=== PATIENT | male | born 1965 | race Caucasian/White ===

== ENCOUNTER 2020-04-14 12:00 | Day surgery (SDC) | payer OTHER ==
[2020-04-14] VITALS (11 sets, daily range): BP systolic 110–148; BP diastolic 65–84; PULSE 55–79; TEMP 97.4–98.6
[~2020-04-14] VITALS: Ht 177.8 cm; Wt 96.6 kg
--- NOTE | 2020-04-14 11:50 | NUR ---
Patient escorted to the restroom, he voids, and returns to room.
[~2020-04-14 12:00] MED LIST: HCTZ 25MG TAB25 MG PO; LOPRESSOR100 MG PO; NORVASC 10MG10 MG PO; VASOTEC20 MG PO
--- NOTE | 2020-04-14 14:15 | NUR ---
Patient to room 349 from PACU. Alert and oriented, answers questions appropriately. Carrizales catheter in place, CBI infusing. Patient c/o pain/pressure to penis/bladder. States "I feel like I need to pee, my bladder is full". Patient requests to stand at side of bed because pain is more tolerable standing. Abdomen soft, non tender, non distended.
--- NOTE | 2020-04-14 14:45 | NUR ---
Patient continues to stand at side of bed, yelling out/cursing because pain is untolerable. Patient beltran bag with 500ml clear ortiz urine, 400ml present on admission to unit. Patient requests beltran be discontinued. Beltran catheter irrigated, no urine return noted.
--- NOTE | 2020-04-14 15:00 | NUR ---
Dr Singh notified of beltran catheter/pain and no additional urine output. Orders received.
--- NOTE | 2020-04-14 15:35 | NUR ---
Dr Singh notified of continued pain with beltran catheter removal/reinsertion. See orders.
--- NOTE | 2020-04-14 15:57 | NUR ---
Patient remains standing at bedside with 10/10 pain. 100ml clear ortiz urine noted in beltran bag. Patient continues to yell/curse from pain.
--- NOTE | 2020-04-14 16:35 | NUR ---
Dr Singh here to see patient. Carrizales catheter discontinued at this time.
[2020-04-15 04:09] VITALS: BP 147/87; PULSE 79; TEMP 98.1
--- NOTE | 2020-04-15 04:47 | NUR ---
Patient very restless this shift. Patient ambulated the halls frequently and appears to be awake when staff enter the room. Unsure that patient has slept at all, although he states he has been "napping". Patient is voiding well throughout the night. Continues to be light red/pink. Patient and had multiple questions at the beginning of the shift. This nurse answered them to the best of my ability. Patient has steady gait. Ambulates independently. Dr. Singh called about 2100 to check in on patient. New orders received to assist patient with pain relief, including Percocet 5-325mg q4hr PRN, Toradol 15mg q6 IV PRN, and Pyridium 100mg PO TID. Patient stated he felt better after these were administered. Patient denies any further needs. Will continue to monitor.
[2020-04-15 07:32] VITALS: BP 155/88; PULSE 89; TEMP 98.4
--- NOTE | 2020-04-15 07:35 | NUR ---
Up in room independently. Urinating red tinged urine without difficulty. Having gas pains in stomach. Denies additional needs or concerns at this time.
--- NOTE | 2020-04-15 10:30 | NUR ---
Patient up independently in room. Denies pain. Urinating without difficulty. Urine dark orange in color. Provided ice water to patient. Patient in room at this time. Denies any additional needs.
[2020-04-15 12:00] VITALS: BP 122/67; PULSE 62; TEMP 99.1
--- NOTE | 2020-04-15 12:48 | NUR ---
Reviewed discharge instructions with the patient and his . Deny questions and sign all discharge documents. Provided patient with the discharge packet. Patient and will gather all belongings at this time and will push call light when ready for discharge.
--- NOTE | 2020-04-15 13:15 | NUR ---
Patient uses call light as he is ready to leave. Patient ambulates to POV with all belongings with and TITA Smith.
== END 2020-04-15 13:15 | disposition home or self-care (01) ==
LOC: SURG 12:00 → SDCO 12:00
DX: C67.9 Malignant neoplasm of bladder, unspecified (principal); R31.9 Hematuria, unspecified; F41.9 Anxiety disorder, unspecified; I10 Essential (primary) hypertension; E78.00 Pure hypercholesterolemia, unspecified; Z88.8 Allergy status to other drugs, medicaments and biological substances; Z80.1 Family history of malignant neoplasm of trachea, bronchus and lung; J45.909 Unspecified asthma, uncomplicated; G89.29 Other chronic pain; G47.33 Obstructive sleep apnea (adult) (pediatric); F17.290 Nicotine dependence, other tobacco product, uncomplicated; Z79.82 Long term (current) use of aspirin
CPT/HCPCS: OP; C1769; C2617; J0690; J1100; J1885; J2175; J2405; J2704; J3010; J7120; Q9967